=== PATIENT | female | born 1940 | race African-American/Black ===

== ENCOUNTER → 2016-08-10 | Outpatient (CLI) | payer MEDICARE, OTHER ==
[2016-05-05 14:03] VITALS: BP 160/74
[~2016-08-10] MED LIST: ALEN35TA6 PO; AMLO2.5T PO; AMLO5TAB2 PO; ASPI81TA50 PO; CALC-178 PO; CYAN500T17 PO; GLIM2TAB2 PO; LISI1TAB7 PO; LOVA40TA2 PO; METF500T4 PO; MULT-208 PO
--- NOTE | 2016-08-11 02:40 | PAIN ---
DATE OF SERVICE: 08/10/2016 PROGRESS NOTE DIAGNOSES: Cervical radiculopathy with cervical degenerative disk disease and cervical spondylosis. HISTORY OF PRESENT ILLNESS: The patient is a 75-year-old female who returns for followup, last seen on 05/19/2016. The patient underwent cervical epidural steroid injection at that time with about 95% improvement in the base of the neck and right upper extremity and shoulder. The patient reports the pain is returning now over the past week or two with a throbbing, aching pain in the base of the neck, radiating across into the right upper extremity, shoulder, posterior arm, upper arm and forearm, in the posterior aspect on the right side only. The patient reports occasional tingling in the hand, but may be just an aching, throbbing pain in the neck causing some headaches as well. The patient reports as a 5 on a scale of 10 currently, it can be as high as a 9 with increased activity, use of the right upper extremity with repetitive motions, even getting dressed, raising her arm up over right hand is becoming more painful and again did very well after her last injection on 05/19/2016. The patient reports no new motor or sensory deficits or other complaints. She is very pleased with the progress. She has been sleeping better at night until the last 2 weeks or so. The pain began to return, not as intense as it was, but similar and in the exact reproduction of the pain in the right upper extremity with radiation in a radicular fashion. PHYSICAL EXAMINATION: VITAL SIGNS: Today, the patient's blood pressure is 166/75, pulse , respirations 18, temperature is 98.4 degrees Fahrenheit, weight is 177 pounds. GENERAL: The patient is awake, alert, oriented, appropriate, very pleasant demeanor. HEENT: Shows normocephalic, atraumatic. Extraocular movements are intact and symmetrical. Oral cavity shows mucous membranes are moist and pink. Dentition is intact. NECK: Shows anterior throat supple without palpable lymphadenopathy noted. Swallow reflex is symmetrical. Posterior cervical musculature shows symmetrical with inspection, some moderate tenderness with palpation in the bilateral inferior aspect of the cervical paraspinous musculature into the right superior and lateral trapezius, but nontender on the left. They appears symmetrical and are supple, slightly more firm on the right, but without trigger points, without radiation. Neck shows good rotation of motion both laterally greater than 45 degrees as well as full extension and full forward flexion without exacerbation of pain. CHEST: Shows normal on inspection. Breath sounds are clear to auscultation bilaterally. HEART: Shows S1 and S2 clear. ABDOMEN: Obese, soft, nontender, and nondistended. EXTREMITIES: Upper extremities show deep tendon reflexes at 2+ in the biceps and triceps tendons. 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 Peripheral pulses are 2+ radial distribution. No peripheral edema is noted. Upper extremities are warm and dry to touch, equal in color and appearance. Shoulder shrug is strong and intact with some moderate pain reported with resistance on the right side, without loss of strength or resistance. PLAN: Options were discussed with the patient. The patient's old chart was reviewed as her current medication regimen and updated. Current review of systems updated today as well and we will preauthorize the patient for a cervical epidural steroid injection as she did very well with the first injection, but the pain is returning now on the right upper extremity in a radicular fashion. The patient will continue doing her physical therapy exercises, stretching and strengthening as she has been doing home and she does stay quite active, will do what she can with the limitations of the pain and keep her stretching exercises going. We will have her follow up in approximately one week. We will plan on cervical epidural steroid injection at that time. JANNY CARRILLO MD DR: ROSALIO/jose JOB#: [id number] / [id number]
== END | disposition home or self-care (01) ==
LOC: PNCL 08:55
PROVIDERS: ATTEND Anesthesiology
DX: M50.10 Cervical disc disorder with radiculopathy, unspecified cervical region (principal); M47.892 Other spondylosis, cervical region
CPT/HCPCS: G0463

== ENCOUNTER → 2016-08-24 | Outpatient (CLI) | payer OTHER ==
[2016-05-05 14:03] VITALS: BP 160/74
[~2016-08-24] MED LIST changes: +BUPIVACAINE MPF 0.25% 10 ML VIAL. ONE; +IOHEXOL 180 MG/ML 10 ML VIAL. ONE; +methylPREDNISolone ACETATE 80 MG/ML VIAL. ONE
--- NOTE | 2016-08-25 06:41 | PAIN ---
DATE OF SERVICE: 08/24/2016 PROGRESS NOTE FOR PAIN CLINIC DIAGNOSES: 1. Cervical radiculopathy with cervical degenerative disk disease and cervical spondylosis. 2. Right primary osteoarthritis with right hip joint pain. HISTORY OF PRESENT ILLNESS: The patient is a 75-year-old female who returns for followup status post cervical epidural steroid injection times 1, 08/10/2016. The patient did very well with about a 75% improvement in her neck and upper extremity pain. The patient reports that her main complaint is her right hip, she has had some trouble with this in the past with some significant diagnosis of osteoarthritis of the right hip and is becoming more painful. She was on a walk over the weekend with her daughter when it extended distance of several miles actually in total and it caused some significant pain with weightbearing on the right leg and radiation to the right groin and anterior thigh. The patient reports it is still painful, is a 7 on a scale of 10, it hurts, it is sore, aching in the groin with weightbearing, especially with standing on one leg such as climbing a stair or stepping up on a curb. The patient reports no symptoms on the left side and her neck again is doing much better. The patient reports no new motor or sensory deficits, no new bowel or bladder incontinence or other complaints. PHYSICAL EXAMINATION: VITAL SIGNS: The patient's blood pressure 158/73, pulse 65, respirations 18, temperature 98.7 degrees Fahrenheit. Height is 5 feet 5 inches. Weight is 177 pounds. GENERAL: The patient is awake, alert, oriented, appropriate, very pleasant demeanor. HEENT: Head shows normocephalic, atraumatic. Extraocular movements are intact and symmetrical. Oral cavity, mucous membranes moist and pink. Dentition is intact. NECK: Shows anterior throat supple without palpable lymphadenopathy noted. Swallow reflex is symmetrical. Neck shows full rotational motion of cervical spine including extension and flexion without significant pain reported on exam today. Posterior cervical musculature is mildly tender with deep palpation, but only deep in the superior medial trapezius and the inferior aspect of the cervical paraspinous muscles, and is symmetrical without radiation. CHEST: Shows normal on inspection. Breath sounds are clear to auscultation bilaterally. HEART: Shows S1 and S2 clear. ABDOMEN: Soft, nontender, nondistended. No palpable organomegaly. There is no rebound or guarding demonstrated. BACK: The patient's back shows spine grossly midline. Lumbar paraspinous muscle shows no tenderness with palpation and shows good rotational motion both laterally as well as extension and flexion. The patient's lower extremities show deep tendon reflexes at 1+ in the patellar and tendocalcaneus tendons. There is significant tenderness with palpation over the lateral trochanter on the right side as well as in the groin itself with palpation, but not on the left. Raymond's maneuver is grossly positive on the right side with external rotation and posterior displacement of the hip with significant pain radiating to the thigh and the groin and is negative on the left. Options were discussed with the patient. At this time, the patient's old chart was reviewed as her current medication regimen updated. Current review of systems updated today as well. We will proceed with a right intra-articular hip joint injection. She had done very well with these in the past with fluoroscopic guidance. Risks were again discussed including, but not limited to bleeding, infection, possibility of intravascular injection sequelae, spread of local anesthetic and numbness, side effects of steroid medication, and poor results regarding pain control. The patient understands and wishes to proceed. He is to return to the clinic in approximately 4 weeks for followup, was counseled on return appointment, activity level, side effects to be aware of. DIAGNOSIS: Primary osteoarthritis, right hip joint. PROCEDURE: Right intra-articular hip joint injection using local anesthetic under sterile prep and drape with C-arm fluoroscopic guidance. MEDICATIONS INJECTED: 80 mg Depo-Medrol plus 3 of 0.25% bupivacaine and 3 mL of Isovue for contrast. CONDITION AT DISCHARGE: Stable. The patient tolerated the procedure well, had no complications. JANNY CARRILLO MD DR: ROSALIO/jose JOB#: [id number] / [id number]
== END | disposition home or self-care (01) ==
LOC: PNCL 09:22
PROVIDERS: ATTEND Anesthesiology
DX: M16.11 Unilateral primary osteoarthritis, right hip (principal); I10 Essential (primary) hypertension; E11.9 Type 2 diabetes mellitus without complications; Z87.39 Personal history of other diseases of the musculoskeletal system and connective tissue
CPT/HCPCS: 20610; 77002; J1040; J3490

== ENCOUNTER → 2017-11-18 | Day surgery (SDC) | payer OTHER ==
[~2017-11-18] MED LIST changes: -ALEN35TA6 PO; -AMLO2.5T PO; -AMLO5TAB2 PO; -ASPI81TA50 PO; -BUPIVACAINE MPF 0.25% 10 ML VIAL. ONE; -CALC-178 PO; -CYAN500T17 PO; -GLIM2TAB2 PO; -IOHEXOL 180 MG/ML 10 ML VIAL. ONE; +LIDOCAINE 2% PF Vial for OR 5 ML VIAL.; -LISI1TAB7 PO; -LOVA40TA2 PO; -METF500T4 PO; -MULT-208 PO; +PROPOFOL 20 ML IV; -methylPREDNISolone ACETATE 80 MG/ML VIAL. ONE
[2017-11-18] MEDS: IV RINGERS,LACTATED 1000ML 1,000 ML IV (07:57)
[2017-11-18 09:28] LABS: POC GLUCOSE 135 mg/dL (70-99)
== END | disposition home or self-care (01) ==
LOC: ENDOS 07:20
DX: Z12.11 Encounter for screening for malignant neoplasm of colon (principal); K64.0 First degree hemorrhoids; K57.30 Diverticulosis of large intestine without perforation or abscess without bleeding; Z80.0 Family history of malignant neoplasm of digestive organs; I10 Essential (primary) hypertension; E78.5 Hyperlipidemia, unspecified; E11.9 Type 2 diabetes mellitus without complications; Z88.5 Allergy status to narcotic agent; Z79.82 Long term (current) use of aspirin; Z79.899 Other long term (current) drug therapy; Z83.3 Family history of diabetes mellitus; Z72.89 Other problems related to lifestyle; Z90.710 Acquired absence of both cervix and uterus; Z98.890 Other specified postprocedural states; Z80.3 Family history of malignant neoplasm of breast; Z79.84 Long term (current) use of oral hypoglycemic drugs
CPT/HCPCS: 45378; 82962; J2704

== ENCOUNTER → 2018-06-13 | Outpatient (CLI) | payer OTHER ==
[2018-03-13 15:01] VITALS: BP 152/70
[~2018-06-13] MED LIST changes: +ALEN35TA6 PO; +AMLO10TA6 PO; +AMLO2.5T3 PO; +AMLO5TAB7 PO; +ASPI81TA50 PO; +CALC-178 PO; +CYAN500T17 PO; +GLIM2TAB2 PO; -LIDOCAINE 2% PF Vial for OR 5 ML VIAL.; +LISI1TAB7 PO; +LOVA40TA2 PO; +METF500T16 PO; +MULT-208 PO; -PROPOFOL 20 ML IV
--- NOTE | 2018-06-13 16:05 | PAIN ---
DATE OF SERVICE: 06/13/2018 PROGRESS NOTE FOR PAIN CLINIC DIAGNOSES: 1. Cervical radiculopathy with cervical degenerative disk disease and cervical spondylosis. 2. Right hip joint pain with primary osteoarthritis. HISTORY OF PRESENT ILLNESS: The patient is a 77-year-old female who returns for followup status post right hip joint injection as well as cervical epidural steroid injection, most recently on 05/19/2016. The patient had 95% improvement after the injection for almost 2 years. The patient reports the pain is returning now over the past 2-3 months in the base of the neck, right upper extremity radiating into the right arm, right anterior aspect of the shoulder, biceps as well as into the lateral arm and tricep region into the hand, thumb and first and second fingers. The patient reports there is some tingling and numbness in the hand and fingers, becoming more constant, aching and tight in the neck and shoulder, sore with movement, lifting items reaching over her head with the right arm and lifting items or carrying things with the right arm. The patient reports it is a 6 on a scale 10 at its worst, 6 on average, 5 at its least and is a 6 today. The patient reports no new motor or sensory deficits, no loss of function, but significant pain, which has returned fairly significantly and fairly quickly over the past few months without any specific injury or accident that she is aware of. The patient did have an MRI scan dated 05/17/2018 of the cervical spine showing multilevel degenerative changes, mildly progressed at the C6-C7 level with diffuse disk bulging osteophyte complex and anterior effacement of the thecal sac, moderate right foraminal encroachment and moderate to severe left foraminal encroachment. C4-C5 shows moderate diffuse bulging as well . The patient reports no loss of motor function with significant fatigability to the right upper extremity with activity and even daily activities. The patient also reports it awakens her from sleep at night over the past 3 months as well when lying on her right side. PHYSICAL EXAMINATION: VITAL SIGNS: The patient's blood pressure is 166/79, pulse 73, respirations are 18, temperature 98.3 degrees Fahrenheit, height is 5 feet 5 inches, weight is 167 pounds. GENERAL: The patient is awake, alert, oriented, appropriate, very pleasant demeanor. HEENT: Head shows normocephalic, atraumatic. Extraocular movements are intact and symmetrical. Oral cavity: Mucous membranes are moist and pink. Dentition is intact. NECK: Shows anterior throat supple without palpable lymphadenopathy noted. Swallow reflex is symmetrical. CHEST: Shows normal on inspection. Breath sounds are clear to auscultation bilaterally. HEART: Shows S1, S2 clear. No murmurs auscultated. ABDOMEN: Soft, nontender, nondistended. No palpable organomegaly is noted. No rebound or guarding demonstrated. BACK: Shows spine grossly in the midline. Normal appearing thoracic kyphosis and lumbar lordotic curvature. Lumbar paraspinous muscle shows symmetrical on inspection, on palpation shows moderate tenderness, but only diffusely. Cervical paraspinous muscle shows moderate tenderness, but symmetrical with inspection and more inferiorly in the right side than the left in the posterior cervical paraspinous muscles as well as superior medial trapezius, slightly more firm on the right and more tight in quality than the left. The patient shows good rotational motion of cervical spine with some moderate tenderness with far right rotation past 45 degrees with extension, but not with forward flexion or left lateral rotation, which is performed past 45 degrees without difficulty. EXTREMITIES: The patient's upper extremities show deep tendon reflexes at 2+ in the biceps and triceps tendon. 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 Peripheral pulses are 2+ in radial distribution. No peripheral edema is noted bilaterally. PLAN: 1. Options were discussed with the patient. The patient's old chart was reviewed as her current medication regimen updated. Current review of systems updated today as well. We will preauthorize the patient for a cervical epidural steroid injection. She did very well with this in the past with symptoms returning in the same side, the right side with C6-C7 dermatomal distribution and radiculopathy in the right arm and hand. 2. MRI scan of cervical spine as noted. We will have the patient return in approximately 2 weeks after preauthorization obtained for cervical epidural steroid injection at that time. The patient was encouraged to maintain her activity level and continue stretching exercises that she has been doing. The patient was given a Medrol Dosepak in the meantime to see if this may decrease some of the symptoms while preauthorization is being obtained. The patient was given instructions as well as side effects to be aware of with the medications, will followup as scheduled. JANNY CARRILLO MD DR: ROSALIO/jose JOB#: [id number] / [id number]
== END | disposition home or self-care (01) ==
LOC: PNCL 12:52
PROVIDERS: ATTEND Anesthesiology
DX: M50.123 Cervical disc disorder at C6-C7 level with radiculopathy (principal); M47.22 Other spondylosis with radiculopathy, cervical region; M16.11 Unilateral primary osteoarthritis, right hip
CPT/HCPCS: G0463

== ENCOUNTER → 2018-06-30 | Outpatient (CLI) | payer OTHER ==
[2018-03-13 15:01] VITALS: BP 152/70
[~2018-06-30] MED LIST changes: +IOHEXOL 180 MG/ML 10 ML VIAL. ONE; +methylPREDNISolone ACETATE 40 MG/ML VIAL. ONE; +methylPREDNISolone ACETATE 80 MG/ML VIAL. ONE
--- NOTE | 2018-06-30 13:14 | PAIN ---
DATE OF SERVICE: 06/30/2018 PROGRESS NOTE FOR PAIN CLINIC DIAGNOSIS: Cervical radiculopathy with cervical degenerative disk disease and cervical spondylosis. HISTORY OF PRESENT ILLNESS: The patient is a 77-year-old female who returns for followup status post previous cervical epidural steroid injection with very good results, the last one was in 2015, also had a right hip injection in 07/2016. Did very well with that as well with about 95% on each of these. The patient reports her pain is returning in the base of the neck and shoulders, more on the right upper extremity than the left as it was previously. The patient has obtained preauthorization. I would like to proceed with a cervical epidural steroid injection today. The patient reports no new motor or sensory deficits, no new bowel or bladder incontinence or other complaints. Rates her pain as a 7 on a scale of 10 at its worst, 5 on average and 3 at its least and is a 5 today. The patient reports it is aching and radiating into the right upper extremity, into the hand with some numbness and tingling as well as some dull, burning and cramping pain in the base of the neck. The patient reports no symptoms on the left side, but worse on the right with activity. Does not awaken her from sleep at night, but worse with repetitive motions or weightbearing with the right arm. PHYSICAL EXAMINATION: VITAL SIGNS: The patient's blood pressure is 171/77, pulse 71, respirations 18, temperature 98.1 degrees Fahrenheit, height is 5 feet 5 inches, weighs 165 pounds. GENERAL: The patient is awake, alert, oriented, appropriate, very pleasant demeanor. HEENT: Head shows normocephalic, atraumatic. Extraocular movements are intact and symmetrical. Oral cavity: Mucous membranes are moist and pink. Dentition is intact. NECK: Shows anterior throat supple without palpable lymphadenopathy noted. Swallow reflex is symmetrical. CHEST: Shows normal on inspection. Breath sounds are clear to auscultation bilaterally. HEART: Shows S1, S2 clear. No murmurs auscultated. ABDOMEN: Soft, nontender, nondistended. No palpable organomegaly is noted. No rebound or guarding demonstrated. BACK: Shows spine grossly in the midline. Cervical lordotic curvature is maintained as is thoracic kyphotic curvature. Cervical paraspinous muscle shows symmetrical on inspection. On palpation, she has some moderate tenderness in the inferior aspect of the cervical paraspinous musculature, more on the right than the left, but without trigger points and without radiation. The patient has good rotational motion of the cervical spine, both laterally greater than 45 degrees right and left as well as full extension, full forward flexion without significant difficulty or pain reported. EXTREMITIES: Upper extremities show deep tendon reflexes 2+ in the biceps and triceps tendons. 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 Peripheral pulses are 2+ in radial distribution bilaterally without edema noted bilaterally. Options were discussed with the patient. The patient's old chart was reviewed as her current medication regimen updated. Current review of systems updated today as well. We will proceed with a cervical epidural steroid injection, the first in this series with fluoroscopic guidance. Risks were again discussed including, but not limited to bleeding, infection, possibility of epidural hematoma, subsequent neurologic compromise, dural puncture, headaches, spinal cord and/or nerve damage, side effects of steroid medication and poor results regarding pain control. The patient understands and wished to proceed. The patient will return to the clinic in approximately 2 weeks for followup, was counseled as to return appointment, activity level and side effects to be aware of. DIAGNOSIS: Cervical radiculopathy with cervical degenerative disk disease and cervical spondylosis. PROCEDURE: Cervical epidural steroid injection, translaminar approach at C6-C7 level using C-arm fluoroscopic guidance under sterile prep and drape using local anesthetic. MEDICATION INJECTED: A total of 120 mg Depo-Medrol plus 5 mL of preservative-free normal saline and 2 mL of Isovue for contrast. CONDITION AT DISCHARGE: Stable. The patient tolerated the procedure well, had no complications. JANNY CARRILLO MD DR: ROSALIO/jose JOB#: [id number] / [id number]
== END | disposition home or self-care (01) ==
LOC: PNCL 10:31
PROVIDERS: ATTEND Anesthesiology
DX: M50.123 Cervical disc disorder at C6-C7 level with radiculopathy (principal); M47.22 Other spondylosis with radiculopathy, cervical region; Z88.5 Allergy status to narcotic agent
CPT/HCPCS: 62321; J1030; J1040; Q9965

== ENCOUNTER → 2019-12-24 | Outpatient (CLI) | payer OTHER ==
[2018-03-13 15:01] VITALS: BP 152/70
[~2019-12-24] MED LIST changes: +ALEN35TA11 PO; -ALEN35TA6 PO; -AMLO10TA6 PO; +AMLO10TA8 PO; -AMLO2.5T3 PO; +AMLO2.5T5 PO; +AMLO5TAB10 PO; -AMLO5TAB7 PO; +DICL75TA PO; -GLIM2TAB2 PO; +GLIM2TAB7 PO; -IOHEXOL 180 MG/ML 10 ML VIAL. ONE; +LISI1TAB20 PO; -LISI1TAB7 PO; -methylPREDNISolone ACETATE 40 MG/ML VIAL. ONE; -methylPREDNISolone ACETATE 80 MG/ML VIAL. ONE
--- NOTE | 2019-12-26 16:30 | KCIC ---
Bilateral digital screening mammograms with 3-D tomosynthesis: Reason for examination: Routine screening. Comparison is made to previous studies dated between 11/30/2016 and 02/19/2014. Bilateral mammograms in CC and oblique projections were obtained with 2-D imaging and 3-D tomosynthesis imaging on a Siemens Inspiration unit and reviewed on the workstation. Interpretation was made with the benefit of CAD. The skin and nipples show no abnormalities. No abnormal axillary lymph nodes are seen. The breast parenchyma shows scattered fatty and fibroglandular density. (Breast density: Category B.) There are small nodular asymmetries which are unchanged. There are no new dominant masses, suspicious calcifications or architectural distortion. Benign calcifications are present. Impression: No evidence of malignancy. Recommend routine screening. BI-RAD Category 2: Benign. "Our facility is accredited by the [employer] Mammography Program." This patient's information has been entered into a reminder system for the patient to be notified with the results of her examination and a target date for the next mammogram. Electronically signed by: Kimberly Martinez MD (12/26/2019 4:27 PM) [id number]
== END ==
LOC: KCIC MAMMO 10:51
PROVIDERS: ATTEND Family Medicine
DX: Z12.31 Encounter for screening mammogram for malignant neoplasm of breast (principal)
CPT/HCPCS: 77063; 77067

== ENCOUNTER → 2020-01-02 | Outpatient (CLI) | payer OTHER ==
[2018-03-13 15:01] VITALS: BP 152/70
[~2020-01-02] MED LIST changes: -DICL75TA PO
--- NOTE | 2020-01-02 14:31 | KCIC ---
LUMBAR SPINE WO CONTRAST History: Reason: LUMBAGO, SCIATICA / Spl. Instructions: Unable to obtain IV access, w/o per Dr Diego / History: Mid lumbar pain w/Lt radiculopathy, 3 previous surgeries, 1993,1998,2005 Technique: Multiplanar, multi sequential MR imaging was performed of the lumbar spine. Comparison: Radiographs January 11, 2019 Findings: Right posterior stabilization L2-L3. Intervertebral device L2-L3 and L3-L4. Anterior stabilization L4-L5. Posterior decompression L3-L4. Lateral mass fusion. L1-L2 significant degenerative endplate edema. Mild retrolisthesis L1 on L2. No acute fracture. Conus terminates at the normal location. No evidence of nerve root clumping. T12-L1: Disc bulge. Mild facet arthropathy. No canal or neuroforaminal narrowing. L1-L2: Retrolisthesis. Broad-based disc bulge. Mild canal narrowing. Moderate facet arthropathy. Bilateral facet joint effusions. Subarticular recess narrowing. Moderate bilateral neuroforaminal narrowing. L2-L3: Intervertebral fusion. Advanced facet arthropathy. Mild posterior canal narrowing. Mild left neuroforaminal narrowing. No right neuroforaminal narrowing. L3-L4: Posterior decompression. Intervertebral fusion. No canal narrowing. Degraded evaluation of the neural foramen due to artifact from hardware. At least mild neuroforaminal narrowing. Facet fusion. L4-L5: Bony intervertebral fusion. No canal narrowing. No neuroforaminal narrowing. Facet fusion. L5-S1: Moderate facet arthropathy. No canal narrowing. No neuroforaminal narrowing. Impression: 1. Extensive lumbar spine postoperative changes. 2. Superior junctional L1-L2 spondylosis with degenerative endplate edema contributing to mild canal narrowing and subarticular recess narrowing. 3. Neuroforaminal narrowing most prominent L1-L2. Electronically signed by: Yannick Walsh DO (01/02/2020 2:28 PM) [id number]
== END ==
LOC: KCIC MRI 09:52
PROVIDERS: ATTEND Family Medicine
DX: M47.816 Spondylosis without myelopathy or radiculopathy, lumbar region (principal); M48.061 Spinal stenosis, lumbar region without neurogenic claudication; G95.19 Other vascular myelopathies; Z98.890 Other specified postprocedural states
CPT/HCPCS: 72148

== ENCOUNTER → 2020-01-21 | Outpatient (CLI) | payer OTHER ==
[2018-03-13 15:01] VITALS: BP 152/70
[~2020-01-21] MED LIST changes: +DICL75TA PO
--- NOTE | 2020-01-21 13:12 | PAIN ---
DATE OF SERVICE: 01/21/2020 PROGRESS NOTE FOR PAIN CLINIC DIAGNOSES: 1. Cervical radiculopathy with cervical degenerative disk disease and cervical spondylosis. 2. Lumbar radiculopathy with lumbar degenerative disk disease. 3. Right hip joint pain with osteoarthritis. HISTORY OF PRESENT ILLNESS: The patient is an 79-year-old female who returns for followup, last seen in 06/2018. The patient had cervical epidural steroid injection with very good results, near 90% improvement for a prolonged period of time. The patient reports her chief complaint now is that she was having some pain in her right hip, which we had treated her in the past. She has had that replaced now this 06/2019 and when she was doing her rehabilitation, she started getting increased pain in her back and radiating into the left lower extremity in the posterior gluteus, posterior thigh, posterolateral calf, anteromedial lower leg and into the posterior left calf. The patient had this evaluated with her orthopedic surgeon who checked the films on her left hip showing no significant degeneration. The patient has had lumbar laminectomy at 3 levels in the past with some now radicular pain in the left side. The patient has been doing exercises, strengthening and stretching on her own, which decreased the pain slightly, also taking ibuprofen and Tylenol, which decreased the pain again only minimally. The patient reports it is worse with walking, standing, changing positions, occasionally awakens her from sleep at night, but not generally, better with sitting down or resting. The patient reports it is going on for several months now, again after rehabilitation with her physical therapy for the right hip. The patient is still doing the stretching and strengthening exercises, trying to do the walking daily and household activities, but it is becoming more painful in the left leg, described as aching, radiating and sometimes constant with standing, walking, changing positions, again better with sitting or lying down. The patient rates her pain as a 9 on a scale of 10 at its worst over the past week, 8 on average, 5 at its least and is a 5 today. PHYSICAL EXAMINATION: VITAL SIGNS: The patient's blood pressure is 137/77, pulse 82, respirations 18, temperature 98.3 degrees Fahrenheit, height is 5 feet 5 inches, weight is 167 pounds. GENERAL: The patient is awake, alert, oriented, appropriate, very pleasant demeanor. HEENT: Shows normocephalic, atraumatic. Extraocular movements are intact and symmetrical. Oral cavity: Mucous membranes moist and pink. Dentition is intact. NECK: Shows anterior throat supple without palpable lymphadenopathy noted. Swallow reflex symmetrical. CHEST: Shows normal on inspection. Breath sounds are clear. No rales, rhonchi or wheezes auscultated. HEART: Shows S1, S2 clear. No murmurs auscultated. ABDOMEN: Soft, nontender, nondistended. No palpable organomegaly is noted. No rebound or guarding demonstrated. BACK: Shows spine grossly in the midline. Normal appearing thoracic kyphosis and flattening of lumbar lordotic curvature with well-healed surgical scar noted. Cervical lordotic curvature is intact and normal in appearance. Cervical paraspinous muscle shows symmetrical on inspection, with palpation shows some moderate tenderness inferiorly in the inferior left greater than right cervical paraspinous musculature and into the superior medial trapezius on the left side as well compared to the right. The patient has good rotational motion of cervical spine, however, both laterally as well as extension and flexion without significant difficulty. The patient's lumbar spine shows well-healed surgical scarring, lumbar paraspinous musculature with some flattening of the lordotic curvature, with palpation shows some moderate tenderness diffusely bilaterally going diffusely without significant radiation. The patient has good rotational motion of both the cervical and lumbar spines without significant increase in pain. EXTREMITIES: Upper extremities show deep tendon reflexes 2+ in the biceps and triceps tendons. Motor exam is strong with financial analysis manager strength rated at 5/5 and equal as is bicep and tricep flexion. Lower extremities show deep tendon reflexes 1+ patellar and tendo calcaneus tendons. Motor exam is strong with 5/5 dorsiflexion, extension and symmetrical as well. The patient also has a well-healed surgical scar in the right lateral hip as well. Options were discussed with the patient. The patient's old chart was reviewed as her current medication regimen updated. Current review of systems updated today as well. We will preauthorize the patient for a lumbar epidural steroid injection. She is having significant radicular pain in L4-L5 dermatomal distribution on the left, status post doing physical therapy and also exercises on her own, walking daily, anti-inflammatories and Tylenol. The patient will return for lumbar epidural steroid injection and we will plan on translaminar approach at the L4-L5 level. JANNY CARRILLO MD DR: ROSALIO/jose JOB#: [id number] / [id number]
== END | disposition home or self-care (01) ==
LOC: PNCL 11:39
PROVIDERS: ATTEND Anesthesiology
DX: M51.16 Intervertebral disc disorders with radiculopathy, lumbar region (principal); M16.11 Unilateral primary osteoarthritis, right hip; M50.10 Cervical disc disorder with radiculopathy, unspecified cervical region; M47.22 Other spondylosis with radiculopathy, cervical region; Z79.899 Other long term (current) drug therapy
CPT/HCPCS: G0463

== ENCOUNTER → 2020-02-05 | Outpatient (CLI) | payer OTHER ==
[2018-03-13 15:01] VITALS: BP 152/70
[~2020-02-05] MED LIST changes: +IOHEXOL 180 MG/ML 10 ML VIAL. ONE; +methylPREDNISolone ACETATE 40 MG/ML VIAL. ONE; +methylPREDNISolone ACETATE 80 MG/ML VIAL. ONE
--- NOTE | 2020-02-05 13:07 | PDOC ---
Progress Note - Pain Clinic Date of Service: DOS: DATE: 02/05/20 TIME: 13:03 Diagnosis: Dx: Lumbar radiculopathy with lumbar degenerative disc disease and lumbar postlaminectomy syndrome History or Present Illness: HPI: 79-year-old female returns follow-up status post initial evaluation and preauthorization for lumbar epidural steroid injection. Patient reports she is obtained this would like to proceed today. Patient with pain the low back left lower extremity that was previously posterior gluteus posterior thigh lateral thigh posterior calf with walking standing changing positions. Patient works as a 9 on scale 10 is worse of the past week 8 on average and 7 at its least is a 7 today patient can be constant is aching and dull shooting and sharp at times and is cramping stabbing the low back as well. Patient reports is worse with activity standing walking changing positions. Better with sitting or laying down. Patient reports no new motor or sensory deficits no new bowel or bladder incontinence or other complaints. Physical Exam: VS: Blood pressure 138/78 pulse 74 respirations 18 temperature 97.8 F weight is 1 6 7 pounds PE: PHYSICAL EXAMINATION: GENERAL: The patient is awake, alert, oriented, appropriate, very pleasant demeanor HEENT: Shows normocephalic, atraumatic. Extraocular movements are intact and symmetrical. Oral cavity: Mucous membranes moist and pink. Dentition is intact. NECK: Shows anterior throat supple without palpable lymphadenopathy noted. Sw allow reflex symmetrical. CHEST: Shows normal on inspection. Breath sounds are clear bilaterally, no rales rhonchi or wheezes auscultated. HEART: Shows S1, S2 clear. ABDOMEN: Soft, nontender, nondistended. No palpable organomegaly is noted. No rebound or guarding demonstrated. BACK: Shows spine grossly in the midline. Normal-appearing cervical lordotic curvature. There is slightly increased thoracic kyphosis, some minor flattening of the lumbar lordotic curvature with well-healed surgical scarring which is fairly extensive. Lumbar paraspinous muscles show symmetrical on inspection, on palpation shows some moderate tenderness diffusely throughout the upper, middle and lower distribution of the paraspinous muscles without specific trigger points, without radiation of pain. The patient has good rotational motion of the lumbar spine, both laterally as well as extension and flexion without significant difficulty. No tenderness over the spinous processes, sacrum or sacroiliac regions. EXTREMITIES: Lower extremities show deep tendon reflexes 1+ in the patellar and tendo calcaneus tendons. Motor exam is 5 on a scale of 5 with right d orsiflexion, extension, quadriceps and hamstring flexion and 5/5 on the left. Peripheral pulses are 1+ posterior tibial. No peripheral edema is noted bilaterally. Lower extremities are warm and dry to touch, equal in color and appearance. SKIN: Shows warm and dry, good turgor. No edema. No sores, rashes or bruising throughout. Procedure: Procedure: Options are discussed with the patient. Patient's old chart was reviewed his current medication regimen updated current review of systems updated today as well. We will proceed with a lumbar epidural steroid injection today with fluoroscopic guidance. Risks discussed include but not limited to bleeding infection of epidural hematoma subsequent neurological compromise dural puncture headache spinal cord and or nerve damage side effects of steroid medication/guarding pain control. Patient understands wished to proceed. Patient will return to clinic in approximately 2 weeks for follow-up was counseled as to return appointment activity level and side effects be aware of. Medication Injected: Med Injected: Procedure is lumbar epidural steroid injection under local anesthetic using sterile prep and drape at the L5-S1 level using C-arm fluoroscopic guidance in both AP and lateral views medications injected is 120 mg Depo-Medrol +[]mL preservative-free normal saline and 2 mL of contrast- condition at discharge is stable patient tolerated procedure well had no complications. Condition at Discharge: Condition at Discharge: Condition at discharge is stable patient tolerated well had no immediate complications. JANNY CARRILLO MD Feb 05, 2020 13:07
== END | disposition home or self-care (01) ==
LOC: PNCL 11:18
PROVIDERS: ATTEND Anesthesiology
DX: M51.16 Intervertebral disc disorders with radiculopathy, lumbar region (principal); M96.1 Postlaminectomy syndrome, not elsewhere classified; Z87.891 Personal history of nicotine dependence; Z79.899 Other long term (current) drug therapy; Z98.890 Other specified postprocedural states; Z88.8 Allergy status to other drugs, medicaments and biological substances; Z80.3 Family history of malignant neoplasm of breast; Z80.8 Family history of malignant neoplasm of other organs or systems
CPT/HCPCS: 62323; J1030; J1040; Q9965

== ENCOUNTER → 2020-04-22 | Outpatient (CLI) | payer OTHER ==
[2018-03-13 15:01] VITALS: BP 152/70
[~2020-04-22] MED LIST changes: -ALEN35TA11 PO; +ALEN35TA45 PO; +AMLO-186 PO; +AMLO-187 PO; -AMLO10TA8 PO; -AMLO5TAB10 PO; -IOHEXOL 180 MG/ML 10 ML VIAL. ONE; -methylPREDNISolone ACETATE 40 MG/ML VIAL. ONE; -methylPREDNISolone ACETATE 80 MG/ML VIAL. ONE
--- NOTE | 2020-04-22 13:42 | KCIC ---
EXAM: DUAL ENERGY X-RAY ABSORPTIOMETRY (DEXA). HISTORY: Postmenopausal screening. Osteopenia. FINDINGS: The lowest measured T-score is -1.5 in the left total femur, based on a bone mineral density of 0.762 g/cm^2. Refer to the worksheets for full detail. The T-score associated with the distal third of the left radius is -1.4. No comparison examinations are available. IMPRESSION: Low bone mass. Bone mineral density yields a T-score between -1.0 and -2.5. Fracture risk is increased. FRAX was not calculated. METHODOLOGY: Dual energy x-ray absorptiometry was performed to measure bone mineral density. The following analysis is based on the 2019 Official Positions of the International Society for Clinical Densitometry: Measurements of the hips and the average of L1-L4 are preferred. When the spine and/or hip cannot be feasibly measured or interpreted, or in the setting of hyperparathyroidism, distal radial bone mineral density may be measured. The lumbar spine T-score is based on the average bone mineral density of L1-L4. In the setting of artifact or anatomic abnormality, some lumbar levels may be excluded, and the remaining levels used for calculation. A single lumbar level is not used for diagnosis, and if only a single level is available for assessment, another anatomic site will be used to assign a diagnosis. The hip T-score is based on the bone mineral density measurement of the femoral neck or total proximal femur of either side, whichever is lowest. Bilateral mean values are not used for diagnosis. The forearm T-score is derived from 33% of the distal radius of the nondominant forearm. For postmenopausal and perimenopausal women, and men age 50 or older, of all ethnic groups, T-scores are calculated through comparison of the current measurement with the NHANES III database standard for females aged 20-29 years. The lowest T-score of the evaluated anatomic sites is used to assign a diagnosis based on the World Health Organization densitometric classification. In premenopausal females and males younger than age 50, a Z-score is calculated based on population specific reference data for patient sex and self-reported ethnicity. Electronically signed by: Dorian Triana MD (04/22/2020 1:39 PM) [id number]
== END ==
LOC: KCIC DEXA 12:26
PROVIDERS: ATTEND Family Medicine
DX: M85.88 Other specified disorders of bone density and structure, other site (principal); Z78.0 Asymptomatic menopausal state
CPT/HCPCS: 77080; 77081

== ENCOUNTER → 2020-10-06 | Outpatient (CLI) | payer OTHER ==
[2018-03-13 15:01] VITALS: BP 152/70
--- NOTE | 2020-10-06 12:44 | KCIC ---
MR LUMBAR SPINE [id number] History: Reason: LUMBAGO WITH SCIATICA / Spl. Instructions: Two previous surgeries yrs ago. / History : LBP and left hip pain after a left hip replacemnt in 06/2019. LLE tingling. Technique: Multiplanar, multi sequential MR imaging was performed of the lumbar spine. Comparison: December 03, 2019 Findings: Anterior stabilization and interbody fusion L4-L5. Right posterior stabilization and interbody device L2-L3. Posterior decompression L3. Mild retrolisthesis L1 on L2, unchanged. Grade 1 anterolisthesis L3 on L4, unchanged. Persistent dege nerative endplate edema L1-L2. Normal vertebral body height. No fracture. Conus terminates at the normal location. No evidence of nerve root clumping. T12-L1: Small disc bulge. Mild facet arthropathy. No canal or neuroforaminal narrowing. L1-L2: Retrolisthesis. Posterior disc osteophyte complex. Mild canal narrowing. Subarticular recess narrowing. Moderate facet arthropathy. Moderate bilateral neuroforaminal narrowing. Facet joint effus ions. L2-L3: Intervertebral fusion. Advanced facet arthropathy. No canal narrowing. Mild left neuroforamin al narrowing. L3-L4: Posterior decompression. No canal narrowing. Intervertebral fusion. Degraded evaluation of th e neural foramen due to artifact from hardware. Moderate right and mild left neuroforaminal narrowing . L4-L5: No canal narrowing. Intervertebral fusion. No neuroforaminal narrowing. L5-S1: Disc bulge. No canal narrowing. Facet arthropathy. No neuroforaminal narrowing. Uncovertebral examination the degenerative findings are similar. Impression: 1. Extensive postoperative changes throughout the lumbar spine. 2. Multilevel lumbar spondylosis most prominent L1-L2 with degenerative endplate edema, unchanged. 3. Neuroforaminal narrowing most prominent L1-L2, unchanged Electronically signed by: Yannick Walsh DO (10/06/2020 12:41 PM) [id number]
== END ==
LOC: KCIC MRI 09:54
PROVIDERS: ATTEND Family Medicine
DX: M47.816 Spondylosis without myelopathy or radiculopathy, lumbar region (principal); M48.061 Spinal stenosis, lumbar region without neurogenic claudication; M51.27 Other intervertebral disc displacement, lumbosacral region; M25.78 Osteophyte, vertebrae; M53.86 Other specified dorsopathies, lumbar region; M12.88 Other specific arthropathies, not elsewhere classified, other specified site; M43.26 Fusion of spine, lumbar region; Z98.890 Other specified postprocedural states
CPT/HCPCS: 72148

== ENCOUNTER 2020-11-21 09:29 | Outpatient (CLI) | payer OTHER ==
[~2020-11-21 09:29] MED LIST changes: +IOHEXOL 180 MG/ML 10 ML VIAL. IJ ONE; +LIDOCAINE WITH 8.4% SOD BICARB 3 ML DISP.SYRIN. INJ ONE
[2020-11-21] MEDS ORDERED: LIDOCAINE 1% Multi-Dose 20 ML VIAL. INJ ONE (09:45)
[2020-11-21 10:44] VITALS: BP 163/78
--- NOTE | 2020-11-21 11:10 | NUR ---
Patient given instructions post procedure. Instruction sheet signed x2. Will call MD or go to ED w/ any worsening symptoms. Patient refused meal, drink. States she will eat at home. is driving home. No pain at this time. No headache, no bleeding at access site. Bandaid to be removed tomorrow. VS stable. Able to walk, put on clothes with no issues. Patient and verbalized understanding. No questions at this time.
[2020-11-21 11:19] VITALS: BP 135/71
--- NOTE | 2020-11-21 11:47 | RAD ---
EXAM: Fluoroscopic guided lumbar puncture for CT myelography; Lumbar spine CT myelogram without contr ast. HISTORY: Back and left hip and lower extremity pain. TECHNIQUE: The risks of the procedure were discussed with the patient and written and verbal consent was obtained. A timeout was performed. Fluoroscopic imaging of the lumbar spine was performed and a s ite overlying L3-L4 was selected. This can this location was sterilely prepped, draped and infiltrate d with 1 percent lidocaine. A 22-gauge spinal needle was advanced into the thecal sac and appropriate needle tip position was confirmed with spontaneous yield of CSF within the needle hub. 14 cc Omnipaq ue 180 intrathecal contrast was injected into the thecal sac. The needle was removed and a sterile me asures placed at the needle entry site. Standing neutral, flexion and extension and crosstable latera l prone images of the lumbar spine were obtained. The total fluoroscopy time was 0.6 minutes. 4 fluor oscopic images were obtained. The patient was transferred to the CT suite for the post injection CT p ortion of the exam and was then discharged one hour following the procedure in stable condition witho ut immediate complication. Computed tomographic images of the lumbar spine were obtained without contrast. Multiplanar reformatt ing was performed. *One or more of the following individualized dose reduction techniques were utilized for this examina tion: 1. Automated exposure control. 2. Adjustment of the mA and/or kV according to patient size. 3. Use of iterative reconstruction technique. COMPARISON: MRI dated 10/06/2020. FINDINGS: There is instrumented left anterior spinal fusion and noninstrumented posterior spinal fusi on at L4-S1. The inferior most screw at L5 traverses the disc space. There are disc space fusion delmi carlos at L2-L3 and L3-L4 and there is right posterior fusion instrumentation at L2-L3. There is no luce ncy surrounding the instrumentation to suggest loosening. There is S-shaped lumbar scoliosis, with dextrocurvature centered at L1-L2 and levocurvature centered at L4-L5. There is 3 mm retrolisthesis of L1 on L2, 2 mm grade 1 anterolisthesis of L2 on L3, 7 mm g rade 1 anterolisthesis of L3 on L4, and 5 mm grade 1 anterolisthesis of L4 on L5. There is degenerative endplate remodeling with disc space narrowing, osteophytosis and Schmorl's node formation primarily along the left greater than right aspect of L1. There is additional endplate rem odeling at the remainder of the lower thoracic and lumbar levels. There are partially bridging left a nterior osteophytes at L3-L4. The conus terminates at T12-L1. There is no evidence of motion at the fused levels between flexion and extension. There is bone graft harvest site involving the bilateral iliac bones. There is vacuum phenomenon and subchondral scleros is involving the sacroiliac joints. There is sigmoid diverticulosis. The uterus is absent. There is a ortobiiliac atherosclerosis. At T11-T12, there is a disc bulge. There is mild right greater than left facet arthropathy. There is no stenosis. At T12-L1, there is a posterior central disc protrusion with 3 mm superior and inferior extrusion sup erimposed on a disc bulge and right lateral predominant endplate osteophytosis. There is mild right f acet arthropathy. There is mild right foraminal stenosis. At L1-L2, there aren't left greater than right foraminal to extra foraminal disc protrusions and oste ophyte complexes superimposed on a diffuse disc bulge and left lateral predominant endplate osteophyt osis. There is moderate right greater left facet arthropathy. There is hypertrophy of the ligamentum flavum. There is retrolisthesis. There is moderate right and severe left foraminal stenosis. There is [id number] central canal stenosis. At L2-L3, there is instrumented right posterior fusion and disc space fusion device placement. There is endplate remodeling. There is severe bilateral facet arthropathy. There is mild left foraminal sandra nosis. At L3-L4, there is disc space fusion device placement. There is a right foraminal to extra foraminal disc osteophyte complex. There is grade 1 anterolisthesis. There is moderate right foraminal stenosis . There is laminectomy decompression of the thecal sac. At L4-L5, there is instrumented anterior spinal fusion and nonenhancement and posterior fusion. There is no stenosis. At L5-S1, there is noninstrumented posterior fusion. There is no stenosis. IMPRESSION: 1. Instrumented left anterior spinal fusion and noncemented posterior spinal fusion at L4-S1, disc sp claribel fusion device placement at L2-L3 and L3-L4 and right posterior spinal fusion at L2-L3. There is n o evidence of instrumentation loosening or fracture. 2. Multilevel degenerative change throughout the lower thoracic and lumbar spine, described in detail above. These findings are associated with mild right foraminal stenosis at T12-L1, moderate right an d severe left foraminal and mild to moderate central canal stenosis at L1-L2, mild left foraminal sandra nosis at L2-L3 and moderate right foraminal stenosis at L3-L4. These findings are similar compared to the comparison MRI, allowing for differences in imaging modality. 3. Lumbar scoliosis and multilevel listhesis, described above. 4. Incidental sigmoid diverticulosis. Electronically signed by: Adrienne Thomas MD (11/21/2020 11:44 AM) [id number]
== END 2020-11-21 11:24 | disposition home or self-care (01) ==
LOC: RAD 09:29
PROVIDERS: ATTEND Orthopaedic Surgery
DX: M47.26 Other spondylosis with radiculopathy, lumbar region (principal); Z98.1 Arthrodesis status
CPT/HCPCS: 62304; 72132; J3490; Q9965

== ENCOUNTER → 2021-01-01 | Outpatient (CLI) | payer OTHER ==
[~2021-01-01] MED LIST changes: -ALEN35TA45 PO; +ALEN35TA47 PO; -IOHEXOL 180 MG/ML 10 ML VIAL. IJ ONE; -LIDOCAINE WITH 8.4% SOD BICARB 3 ML DISP.SYRIN. INJ ONE; -LISI1TAB20 PO; +LISI1TAB39 PO
--- NOTE | 2021-01-01 13:15 | KCIC ---
Bilateral digital screening mammograms with 3-D tomosynthesis: Reason for examination: Routine screening. Comparison is made to previous studies dated back to 12/17/2015. Bilateral mammograms in CC and oblique projections were obtained with 2-D imaging and 3-D tomosynthes is imaging on a Siemens Inspiration unit and reviewed on the workstation. Interpretation was made wit h the benefit of CAD. The skin and nipples show no abnormalities. No abnormal axillary lymph nodes are seen. The breast par enchyma is heterogeneously dense. (Breast density: Category C.) There continued be nodular densities at the 2:30 B position of the right breast, at the 2:00 B position of the left breast at the 2:30 C p osition of the left breast which are unchanged. There are no new dominant masses, suspicious calcific ations or architectural distortion. Benign calcifications are present. Impression: No evidence of malignancy. Recommend routine screening. Your patient's mammogram demonstrates that she has dense breast tissue (breast density category C or D), which could hide abnormalities, and if she has other risk factors for breast cancer that have bee n identified, she might benefit from supplemental screening tests that may be suggested by you as her ordering physician. Dense breast tissue, in and of itself, is a relatively common condition. Therefo re, this information is not provided to cause undue concern, but rather to raise your awareness and t o promote discussion with your patient regarding the presence of other risk factors, in addition to d ense breast tissue. Your patient's mammography results will be sent to her. BI-RAD Category 2: Benign. "Our facility is accredited by the [employer] Mammography Program." This patient's information has been entered into a reminder system for the patient to be notified wit h the results of her examination and a target date for the next mammogram. Electronically signed by: Kimberly Martinez MD (01/01/2021 1:12 PM) [id number]
== END ==
LOC: KCIC MAMMO 11:14
PROVIDERS: ATTEND Family Medicine
DX: Z12.31 Encounter for screening mammogram for malignant neoplasm of breast (principal)
CPT/HCPCS: 77063; 77067

== ENCOUNTER → 2021-02-05 | Outpatient (CLI) | payer OTHER ==
[~2021-02-05] MED LIST changes: +LISI1TAB20 PO; -LISI1TAB39 PO
--- NOTE | 2021-02-05 13:07 | KCIC ---
EXAM: Frontal pelvis with two-view left hip. HISTORY: Left hip pain. COMPARISON: None. FINDINGS: A right total hip arthroplasty is in expected alignment. Anterior fusion across of the lumb osacral junction is partially visualized. There are surgical clips in the left lower quadrant. Athero sclerotic calcifications are noted. Osteopenia is moderate. No fractures are identified. The joint spaces and alignment of the left hip a re maintained. There are mild degenerative changes for patient age at the left sacroiliac joint and p ubic symphysis. IMPRESSION: 1. Mild left sacroiliac osteoarthritis for patient age. Unremarkable examination of the left hip. Electronically signed by: Dorian Triana MD (02/05/2021 1:04 PM) [id number]
== END ==
LOC: KCIC 10:55
PROVIDERS: ATTEND Family Medicine
DX: M16.12 Unilateral primary osteoarthritis, left hip (principal); M85.88 Other specified disorders of bone density and structure, other site; I70.90 Unspecified atherosclerosis; M25.552 Pain in left hip; Z98.890 Other specified postprocedural states
CPT/HCPCS: 73501